=== PATIENT | male | born 1935 | race Two or more races ===

== ENCOUNTER 2022-04-17 18:40 | Emergency (ER) | payer MEDICARE, OTHER ==
[~2022-04-17] VITALS: Ht 167.6 cm; Wt 72.6 kg
[2022-04-17 19:09] VITALS: BP 152/64
[2022-04-17] MEDS ORDERED: CYCL5TAB PO (21:13)
--- NOTE | 2022-04-17 21:17 | NUR ---
Patient discharged to home in stable condition under the care of his family. Written and verbal after care instructions given to his family. Patient verbalizes understanding of instruction. Pt ambulatory with a steady gait w/ an aide of a walker
== END 2022-04-17 21:24 | disposition home or self-care (01) ==
LOC: ER 18:58
DX: M54.50 Low back pain, unspecified (principal); M25.552 Pain in left hip; I10 Essential (primary) hypertension; Z79.899 Other long term (current) drug therapy; W18.30XA Fall on same level, unspecified, initial encounter; Y93.89 Activity, other specified; Y92.89 Other specified places as the place of occurrence of the external cause; Y99.8 Other external cause status
CPT/HCPCS: 72131-TC; 72192-TC